=== PATIENT | female | born 1975 | race Caucasian/White ===

== ENCOUNTER 2022-10-25 09:54 | Emergency (ER) | payer MEDICARE, OTHER ==
[~2022-10-25] VITALS: Ht 154.9 cm; Wt 110.4 kg
[2022-10-25] MEDS ORDERED: LIDOCAINE 1% INJ 20 ML VIAL ONE (10:15)
--- NOTE | 2022-10-25 10:21 | ED Integumentary General ---
General Chief Complaint: Skin/Wound Problems Stated Complaint: RT GROIN ABSCESS Source: patient History of Present Illness Date Seen by Provider: Oct 25, 2022 Time Seen by Provider: 10:01 Initial Comments 47-year-old female presenting with complaints of pain and swelling to her right groin. She states this has been going on for several weeks and she was seen by [facility] in [place]. They had started her on Bactrim and she finished a 5-day course of that. She had been also applying warm packs to the area and that had seemed to get the infection to come to ahead and looks like it was about to drain. She has had no current drainage from the area. She denies any history of MRSA or recurrent boils. She is complaining of pain in the right groin. She denies fever or chills. Timing/Duration: getting worse (Increasing pain and swelling over the last few weeks. Now seems to be coming to ahead since she took antibiotics and has been using hot packs.) Severity: moderate Location: genitalia (Right groin) Possible Cause: no cause identified Modifying Factors: worse with scratching Associated Symptoms: No blisters, No change in skin texture, No edema, No fever, No flushing, No headache, No hives, No jaundice, No malaise, No nasal c ongestion, No numbness, No pallor, No paresthesia, No petechiae, No rash, No sore throat, No swelling/mass/lumps, No tingling Allergies and Home Medications Allergies Coded Allergies: No Known Drug Allergies (Unverified , 10/25/22) Patient Home Medication List Home Medication List Reviewed: Yes Ibuprofen (Ibuprofen) 800 Mg Tablet, 800 MG PO Q8H PRN for PAIN Prescribed by: LAURA VIZCAINO on 10/25/22 112 Sulfamethoxazole/Trimethoprim (Bactrim Ds Tablet) 1 Each Tablet, 1 EACH PO BID Prescribed by: LAURA VIZCAINO on 10/25/22 112 Tramadol HCl (Tramadol HCl) 50 Mg Tablet, 50 MG PO Q6H PRN for PAIN-SEVERE (8- 10) Prescribed by: LAURA VIZCAINO on 10/25/22 112 Review of Systems Review of Systems Constitutional: No chills, No fever EENTM: no symptoms reported Respiratory: no symptoms reported Cardiovascular: no symptoms reported Gastrointestinal: no symptoms reported Genitourinary: no symptoms reported Musculoskeletal: no symptoms reported Skin: see HPI, change in color (Erythema with increased swelling and tenderness to the right groin) Psychiatric/Neurological: Anxiety Past Stmxgws-Agzrcg-Yoffdy Hx Patient Social History Tobacco Use?: Yes Physical Exam Vital Signs Vital Signs - First Documented 10/25/22 10:15 Temp 37.0 Pulse 84 Resp 16 B/P (MAP) 130/92 (105) Pulse Ox 94 O2 Delivery Room Air Capillary Refill : General Appearance: mild distress, obese HEENT: PERRL/EOMI Cardiovascular: normal peripheral pulses, regular rate, rhythm Respiratory: chest non-tender, lungs clear, normal breath sounds Extremities: normal range of motion, non-tender, normal capillary refill Neurologic/Psychiatric: alert, oriented x 3 Skin: warm/dry Skin Problem Location: other (Right groin) Skin Problem Character: abscess, erythema, swelling, tenderness, warm Lymphatic: inguinal node tender (R) Procedures/Interventions I&D : Site: Right groin in the pubic hair Blade Size: 11 I & D Procedure: betadine prep, sterile dressing applied Progress After obtaining verbal consent from the patient the wound was cleaned with Betadine swabs. Then using 1 mL of 1% plain lidocaine the area was infiltrated for anesthetic effect. Patient tolerated this well without any immediate complication. Using an 11 blade scalpel a small single stab incision was made. She had immediate spray of purulent drainage from the wound. A wound culture was obtained of the purulent discharge. Gentle pressure was applied from the outside towards the middle to express more purulent drainage. Patient tolerated this well without any immediate complication. She had moderate to large amount of purulent discharge and blood. A sterile 4 x 4 gauze was taped over the area in case there was additional drainage. There is no definite cavity felt to be able to pack the wound with a drain. Continue with Bactrim for an additional 10 days and use hot packs. Advised to check back with the clinic in 3 to 5 days especially if not improving. Cultures will be back in 2 to 3 days and if antibiotics need to be changed she will get a call. Progress/Results/Core Measures Results/Orders My Orders Orders - LAURA VIZCAINO MD Lidocaine 1% Inj 20 Ml (Xylocaine 1% Inj (10/25/22 10:15) Wound Culture (10/25/22 11:29) Wound Dressing-Ed (10/25/22 11:29) Medications Given in ED Current Medications Medications Dose Ordered Sig/Alonso Route Start Time Stop Time Status Last Admin Dose Admin Lidocaine HCl 20 ml STK-MED ONCE .ROUTE 10/25/22 10:15 10/25/22 10:18 DC 10/25/22 11:25 20 ML Vital Signs/I&O 10/25/22 10/25/22 10:15 11:51 Temp 37.0 37.0 Pulse 84 84 Resp 16 16 B/P (MAP) 130/92 (105) 130/92 Pulse Ox 94 94 O2 Delivery Room Air Room Air Progress Progress Note : Progress Note I&D of abscess performed and wound culture sent from the purulent drainage obtained. Continue with Bactrim antibiotic and prescribe a few ibuprofen and tramadol to help with more severe pain. Advised to check back with the clinic and return if worsening. Departure Impression Primary Impression: Abscess of groin, right Disposition: HOME, SELF-CARE Condition: Stable Departure-Patient Inst. Decision time for Depature: 11:23 Referrals: EDNA AREVALO (PCP) Primary Care Physician Patient Instructions: Abscess Incision and Drainage ED, Boil, Adult ED Add. Discharge Instructions: Continue to apply warm packs to the area to help with drain. Take antibiotics to help continue to treat infection. Check back with your primary provider in 3 to 5 days about the infection and make sure it was improving. All discharge instructions reviewed with patient and/or family. Voiced understanding. Scripts Ibuprofen (Ibuprofen) 800 Mg Tablet 800 MG PO Q8H PRN for PAIN for 10 Days, #30 TAB 0 Refills Prov: LAURA VIZCAINO MD 10/25/22 Tramadol HCl (Tramadol HCl) 50 Mg Tablet 50 MG PO Q6H PRN for PAIN-SEVERE (8-10) for 3 Days, #12 TAB 0 Refills Prov: LAURA VIZCAINO MD 10/25/22 Sulfamethoxazole/Trimethoprim (Bactrim Ds Tablet) 1 Each Tablet 1 EACH PO BID for Abscess Right Groin for 10 Days, #20 TAB 0 Refills Prov: LAURA VIZCAINO MD 10/25/22 LAURA VIZCAINO MD Oct 25, 2022 10:21
[2022-10-25] MEDS ORDERED: IBUP-1780 PO (11:26)
[2022-10-25] MEDS ORDERED: TRM50T PO (11:26)
[2022-10-25] MEDS ORDERED: SULF1TAB38 PO (11:26)
[2022-10-25 11:51] VITALS: BP 130/92
== END 2022-10-25 11:51 | disposition home or self-care (01) ==
LOC: ER FS 09:58
DX: L02.214 Cutaneous abscess of groin (principal)
CPT/HCPCS: 10060; 87070; 87077; 87186; 87205